=== PATIENT | female | born 1960 | race Caucasian/White ===

== ENCOUNTER → 2021-02-05 | Day surgery (SDC) | payer OTHER ==
[~2021-02-05] VITALS: Ht 167.6 cm; Wt 108.9 kg
[~2021-02-05] MED LIST: ALLEGRA ALLERG180 MG PO; CALCIUM 600+D1 EAC3 PO; CYANOCOBAL1000 MCG/1 IM; DIOVAN160 MG PO; IBANDRONATE3 MG/3 ML IV; LIPITOR20 MG PO; MELOXICAM15 MG PO; METFORMIN HCL500 MG PO; NEXIUM20 MG PO; STOOL SOFTENER100 M1 PO; TIROSINT150 MCG PO; TROKENDI XR100 MG PO; VITAMIN E400 UNI4 PO
== END | disposition home or self-care (01) ==
LOC: FAS 05:43
DX: M24.611 Ankylosis, right shoulder (principal); M75.01 Adhesive capsulitis of right shoulder; Z90.710 Acquired absence of both cervix and uterus; Z90.722 Acquired absence of ovaries, bilateral; Z88.5 Allergy status to narcotic agent
CPT/HCPCS: 82962; 93005; 97161; 97530-GP; J2250; J2704; J2795; J3010; J7120